=== PATIENT | female | born 1950 | race Caucasian/White ===

== ENCOUNTER → 2019-11-15 10:29 | Outpatient (CLI) | payer MEDICARE, SELFPAY ==
--- NOTE | ~2019-11-15 | MM_ITS ---
EXAMINATION: MM screening hill BI w aracely HISTORY: Screening mammogram TECHNIQUE: Craniocaudal and mediolateral oblique 3-D tomosynthesis images were obtained and synthetic 2-D images were generated. CAD analysis was submitted and interpreted. COMPARISON: 10/20/2018, 10/13/2017, 07/16/2016, 05/09/2015 bilateral digital screening mammogram examinat ions BREAST PARENCHYMAL COMPOSITION: The breasts are almost entirely fatty. FINDINGS: There is no evidence of suspicious mass, calcification, or architectural distortion to sugg est malignancy in either breast. There has been no suspicious interval change. IMPRESSION: 1. No mammographic evidence of malignancy. 2. Recommend routine screening mammography in one year. BI-RADS Category 1: Negative Reviewed, dictated and finalized at location A.
== END ==
PROVIDERS: Visit Provider Obstetrics & Gynecology Gynecology
DX: Z12.31 Encounter for screening mammogram for malignant neoplasm of breast (principal)
CPT/HCPCS: 77063; 77067

== ENCOUNTER → 2020-01-24 10:24 | Outpatient (CLI) | payer MEDICARE, SELFPAY ==
--- NOTE | ~2020-01-24 | MR_ITS ---
EXAMINATION: MR brain/brain stem wo/w con EXAM DATE: 01/24/2020 12:16 INDICATION: Z86.011 - Personal history of benign neoplasm of the brain. TECHNIQUE: Magnetic resonance imaging (MRI) of the brain/brain stem obtained without contrast. Sagit sarah T1, axial diffusion, gradient echo (T2*), T1, T2, FLAIR sequences obtained. Patient was then inj ected with XX cc intravenous Multihance contrast. Axial and coronal postcontrast T1 weighted sequence s obtained. Comparison is made to prior examination from 01/25/2019. FINDINGS: There are no areas of restricted diffusion to suggest acute infarction. There is no acute hemorrhage seen on the T2*, a hemosiderin sensitive sequence. No intraparenchymal brain mass. The ve ntricles are normal in size. There are no extra-axial collections. Flow voids are seen in the cereb ral arteries on the T2-weighted sequences consistent with their expected patency. The orbits are unr emarkable. Soft tissue is unremarkable. There is left mastoid effusion and mild ethmoid mucoperioste al thickening. There are no areas of abnormal enhancement on the post contrast images. IMPRESSION: 1. No evidence of meningioma or other suspicious findings. 2. An addendum can be added with dose of contrast once that information is available. Reviewed, dictated and finalized at location A. NURSE IMPRESSION: 1. No evidence of meningioma or other suspicious findings. 2. An addendum can be added with dose of contrast once that information is twyla ilable.
[2020-01-24 11:35] LABS: Estimated Glomerular Filt Rate > 60
== END ==
PROVIDERS: PCP Internal Medicine; Visit Provider Internal Medicine
DX: Z86.011 Personal history of benign neoplasm of the brain (principal)
CPT/HCPCS: 70553; A9577

== ENCOUNTER → 2020-06-12 12:13 | Outpatient (CLI) | payer MEDICARE, SELFPAY ==
--- NOTE | ~2020-06-12 | US_ITS ---
EXAMINATION: US renal BI DATE: 06/12/2020 12:30 INDICATION: Bilateral flank pain. Multiple urinary tract infections. TECHNIQUE: Multiple ultrasound grayscale images of the kidneys were obtained. COMPARISON: CT dated 10/27/2011 FINDINGS: The right kidney measures 8.7 x 4.5 x 4.6 cm. The left kidney measures 10.3 x 5.4 x 4.7 cm. The kidne ys demonstrate normal echogenicity. There is no hydronephrosis in either kidney. No stones identifie d. The bladder is normal. IMPRESSION: 1. Normal kidneys without hydronephrosis. Reviewed, dictated and finalized at location A.
== END ==
PROVIDERS: PCP Internal Medicine; Visit Provider Internal Medicine
DX: R10.9 Unspecified abdominal pain (principal)
CPT/HCPCS: 76775

== ENCOUNTER → 2020-06-30 08:30 | Outpatient (CLI) | payer MEDICARE, SELFPAY ==
[2020-06-30 18:55] LABS: SARS-CoV-2 RNA PCR Negative
== END ==
PROVIDERS: PCP Internal Medicine; Visit Provider Internal Medicine Gastroenterology
DX: Z01.812 Encounter for preprocedural laboratory examination (principal); Z20.822 Contact with and (suspected) exposure to COVID-19
CPT/HCPCS: C9803; U0003; U0005

== ENCOUNTER 2020-07-03 05:40 | Day surgery (SDC) | payer MEDICARE, SELFPAY ==
[2020-06-23 12:28] VITALS: BMI 37.4
[2020-07-03 11:23] VITALS: BP 130/66; PULSE 80; RESP 18; TEMP 36.1; O2SAT 99; BMI 37.3
[2020-07-03] MEDS: LACTATED RINGERS 1,000 ML 150 ML IV CONT (11:34)
[2020-07-03 11:42] LABS: Glucose Point of Care 156 (65-105)
--- NOTE | 2020-07-03 11:47 | WPDANESEPPF ---
Anes - Initial Pre Proc Eval Procedure: Operation Date: 07/03/20 12:30 Proposed Procedures p Esophagogastroduodenoscopy & Colonoscopy - Tyler Kang MD Date/Time: 07/03/20 11:47 Surgeon: Tyler Kang MD Pre Op Diagnosis: change in bowel hanits, GERD Patient Data Age: 69 Gender: F Height: 5 ft Weight: 86.6 kg Last Vital Signs Temp 96.9 F L 07/03/20 11:23 Pulse 80 07/03/20 11:23 Resp 18 07/03/20 11:23 BP 130/66 07/03/20 11:23 Pulse Ox 99 07/03/20 11:23 Allergies Allergy/AdvReac Type Severity Reaction Status Date / Time No Known Allergies Allergy Verified 07/03/20 11:17 Home Medications Medication Instructions Recorded Confirmed Type fluoxetine 20 mg capsule 40 mg PO DAILY #180 cap 02/10/20 07/03/20 Rx sitagliptin 50 mg-metformin 1,000 1 tablet PO BID #180 tablet 02/10/20 07/03/20 Rx mg tablet pantoprazole 40 mg tablet,delayed 40 mg PO BID #60 tablet 04/03/20 07/03/20 Rx release pravastatin 40 mg tablet 40 mg PO DAILY #90 tablet 04/03/20 07/03/20 Rx sod picosulf 10 mg-magnes 3.5 160 ml PO BID #160 ml 05/22/20 07/03/20 Rx gram-citric 12 gram/160 mL oral solution cholecalciferol (vitamin D3) 1,250 1,250 mcg PO WEEKLY 06/09/20 07/03/20 History mcg (50,000 unit) capsule levothyroxine 125 mcg tablet See Rx Instructions .ROUTE 06/12/20 07/03/20 Rx .COMPLEX #90 tablet ciprofloxacin HCl 250 mg tablet 250 mg PO Q12H #14 tablet 06/23/20 07/03/20 Rx Laboratory Tests 07/03/20 11:39 POC Capillary Glucose 156 mg/dl H mg/dl (65-105) Patient hx anesthesia problems: none Family hx anesthesia problems: none PMFSH Past Medical History Medical History (Updated 07/03/20 @ 12:06 by Michael Karimi MD) BMI 38.0-38.9,adult Coffee ground emesis Colon cancer screening Gastroesophageal reflux disease without esophagitis Hypothyroidism Mixed hyperlipidemia Type 2 diabetes mellitus without complication, without long-term current use of insulin Family History Family History Sibling Family history of cardiovascular disease, Onset Age: 66 Social History Social History (Updated 06/09/20 @ 12:53 by Augusta Barreto MA) Smoking packs per day: 0.5 Smoking cigarettes per day: 10.0 Years smoked: 25 Smoking pack-years: 12.50 Smoking status: Former smoker Tobacco type: cigarettes Second hand tobacco smoke exposure: No Smoking end date: 01/23/15 Alcohol intake: never Substance use: never Living arrangements: alone Gender identity (if verbalized by the patient): Female Spiritual care concerns: No Anes - Eval Final PreProcedure Day of Procedure 07/03/20 11:47 Patient weight: obese Heart: regular rate and rhythm Lungs: clear to auscultation Airway: Mallampati scale class II Neurological: alert and oriented Last oral intake: >/= 8 hours ASA classification: III Emergent: no Anesthetic plan: proceed Anesthesia type and monitoring: general GIVS and standard monitoring Informed Consent: The patient's anesthetic plan and its attendant risks and benefits were discussed with the patient/family/POA. Questions were solicited and answers provided to the satisfaction of the patient/family/POA.
--- NOTE | 2020-07-03 12:18 | PM.HPGS ---
History of Present Illness History of Present Illness Consent: Risks, benefits, and alternatives have been discussed and questions answered. Patient agrees to proceed with procedure. Chief complaint: change in bowel hanits, GERD Narrative: Kaelyn Cordero is a 69 year old female with gerd, better after protonix bid instead of omeprazole, also h/o Ramakrishna. Also needs screening colonoscopy Review of Systems Constitutional: Constitutional: Denies headache(s) and Denies weakness Eyes: Eyes: Denies blurry vision ENT: Reports Normal hearing present, Denies headache(s) and Denies neck pain Cardiovascular: Cardiovascular: Denies chest pain and Denies dyspnea Respiratory: Respiratory: Denies dyspnea Gastrointestinal: Gastrointestinal: Reports no additional gastrointestinal complaints Genitourinary: Genitourinary: Denies dysuria Musculoskeletal: Musculoskeletal: Denies neck pain Integumentary/Breasts: Skin/Breast: Denies dry skin Neurologic: Reports Normal hearing present, Denies headache(s) and Denies weakness Psychiatric: Psychiatric: Denies anxiety Endocrine: Endocrine: Denies change in body appearance Hematologic/Lymphatic: Hematologic/Lymphatic: Denies easy bleeding Allergic/Immunologic: Allergic/Immunologic: Denies urticaria PMFSH Past Medical History Medical History (Updated 07/03/20 @ 12:06 by Michael Karimi MD) BMI 38.0-38.9,adult Coffee ground emesis Colon cancer screening Gastroesophageal reflux disease without esophagitis Hypothyroidism Mixed hyperlipidemia Type 2 diabetes mellitus without complication, without long-term current use of insulin Family History Family History Sibling Family history of cardiovascular disease, Onset Age: 66 Social History Social History (Updated 06/09/20 @ 12:53 by Augusta Barreto MA) Smoking packs per day: 0.5 Smoking cigarettes per day: 10.0 Years smoked: 25 Smoking pack-years: 12.50 Smoking status: Former smoker Tobacco type: cigarettes Second hand tobacco smoke exposure: No Smoking end date: 01/23/15 Alcohol intake: never Substance use: never Living arrangements: alone Gender identity (if verbalized by the patient): Female Spiritual care concerns: No Meds Home Medications and Allergies Home Medications Medication Instructions Recorded Confirmed Type fluoxetine 20 mg capsule 40 mg PO DAILY #180 cap 02/10/20 07/03/20 Rx sitagliptin 50 mg-metformin 1,000 1 tablet PO BID #180 tablet 02/10/20 07/03/20 Rx mg tablet pantoprazole 40 mg tablet,delayed 40 mg PO BID #60 tablet 04/03/20 07/03/20 Rx release pravastatin 40 mg tablet 40 mg PO DAILY #90 tablet 04/03/20 07/03/20 Rx sod picosulf 10 mg-magnes 3.5 160 ml PO BID #160 ml 05/22/20 07/03/20 Rx gram-citric 12 gram/160 mL oral solution cholecalciferol (vitamin D3) 1,250 1,250 mcg PO WEEKLY 06/09/20 07/03/20 History mcg (50,000 unit) capsule levothyroxine 125 mcg tablet See Rx Instructions .ROUTE 06/12/20 07/03/20 Rx .COMPLEX #90 tablet ciprofloxacin HCl 250 mg tablet 250 mg PO Q12H #14 tablet 06/23/20 07/03/20 Rx Allergies Allergy/AdvReac Type Severity Reaction Status Date / Time No Known Allergies Allergy Verified 07/03/20 11:17 Vital Signs Vital Signs - 24 hr 07/03/20 11:23 Temperature 96.9 F L Pulse Rate 80 Respiratory Rate 18 Blood Pressure 130/66 Pulse Oximetry 99 Exam Const: General: comfortable and no acute distress HENMT: General nose exam: Normal nares present Eyes: General: appearance normal, both eyes and all related structures Neck: Neck: no JVD Resp: Auscultation: clear to auscultation bilaterally Cardio: Rate: regular rate Rhythm: regular rhythm GI: Inspection: non-distended GI Palp: Yes Soft to palpation Skin: General skin exam: normal color Neuro: General: gait normal Speech: normal speech Extrem: General: normal to inspection
[2020-07-03 12:50] VITALS: BP 122/72; PULSE 69; RESP 22; O2SAT 100
[2020-07-03 13:00] VITALS: BP 121/66; PULSE 66; RESP 21; O2SAT 99
[2020-07-03 13:10] VITALS: BP 134/70; PULSE 66; RESP 19; O2SAT 100
== END 2020-07-03 13:26 | disposition home or self-care (01) ==
PROVIDERS: PCP Internal Medicine; Visit Provider Internal Medicine Gastroenterology
PROC: 0DJ08ZZ Inspection of Upper Intestinal Tract, Via Natural or Artificial Opening Endoscopic (ICD-10-PCS; CPT 43235; principal; 2020-07-03 12:30)
DX: K21.9 Gastro-esophageal reflux disease without esophagitis (principal); R19.4 Change in bowel habit; K29.50 Unspecified chronic gastritis without bleeding; K44.9 Diaphragmatic hernia without obstruction or gangrene; D12.2 Benign neoplasm of ascending colon; D12.0 Benign neoplasm of cecum; D12.4 Benign neoplasm of descending colon; E78.2 Mixed hyperlipidemia; E03.9 Hypothyroidism, unspecified; E11.9 Type 2 diabetes mellitus without complications; Z87.891 Personal history of nicotine dependence
CPT/HCPCS: 43239; 45385; 82948; 88305; J2001; J2704; J7120

== ENCOUNTER → 2020-11-13 10:09 | Outpatient (CLI) | payer MEDICARE, SELFPAY ==
--- NOTE | ~2020-11-13 | DEXA_ITS ---
Bone Density Report Name: Kaelyn Cordero Age: 69 Sex: Female Ethnicity: White Date of : 1950 Indication: osteopenia; hysterectomy; Referring Provider: WERNER LOCKWOOD Study: Bone densitometry was performed. Exam Date: November 13, 2020 Accession number: [id number] Bone Density: Region BMD T-score Z-score Classification AP Spine (L1-L4) 0.900 -1.3 0.8 Osteopenia Femoral Neck (Left) 0.742 -1.0 0.9 Normal Total Hip (Left) 0.999 0.5 2.0 Normal Femoral Neck (Right) 0.721 -1.2 0.7 Osteopenia Total Hip (Right) 0.862 -0.7 0.9 Normal Total Hip Mean 0.931 -0.1 1.5 Normal World Health Organization criteria for BMD impression classify patients as: Normal (T-score at or above -1.0), Osteopenia (T-score between -1.0 and -2.5), or Osteoporosis (T-score at or below -2.5). 10-year Fracture Risk(1): Major Osteoporotic Fracture 8.6% Hip Fracture 1.0% Reported Risk Factors: [place] (), Neck BMD=0.721, BMI=34.2 (1) FRAX(R) Version 3.08. Fracture probability calculated for an untreated patient. Fracture probability may be lower if the patient has received treatment. Previous Exams: Region Exam Age BMD T-score BMD Change BMD Change Date g/cm2 vs Baseline vs Previous AP Spine(L1-L4) 11/13/2020 69 0.900 -1.3 0.000 0.051* 09/01/2018 67 0.850 -1.8 -0.050 0.018 01/22/2016 65 0.832 -2.0 -0.068 -0.053* 12/28/2013 63 0.885 -1.5 -0.015 -0.001 10/13/2011 60 0.886 -1.5 -0.014 -0.008 02/09/2009 58 0.894 -1.4 -0.006 0.005 01/12/2007 56 0.889 -1.4 -0.010 -0.010 09/10/2004 53 0.900 -1.3 Total Hip(Left) 11/13/2020 69 0.999 0.5 -0.136 0.051* 09/01/2018 67 0.948 0.0 -0.186 -0.047* 01/22/2016 65 0.995 0.4 -0.140 0.006 12/28/2013 63 0.989 0.4 -0.146 0.004 10/13/2011 60 0.985 0.4 -0.150 -0.037 02/09/2009 58 1.022 0.7 -0.112* -0.030* 01/12/2007 56 1.052 0.9 -0.082* -0.082* 09/10/2004 53 1.134 1.6 Total Hip(Right) 11/13/2020 69 0.862 -0.7 -0.251 -0.018 09/01/2018 67 0.880 -0.5 -0.233 0.006 01/22/2016 65 0.873 -0.6 -0.240 -0.023 12/28/2013 63 0.896 -0.4 -0.217 -0.035* 10/13/2011 60 0.931 -0.1 -0.182 -0.027 02/09/2009 58 0.958 0.1 -0.155* 0.023 01/12/2007 56 0.935 -0.1 -0.178*
== END ==
PROVIDERS: PCP Internal Medicine; Visit Provider Obstetrics & Gynecology Gynecology
DX: Z78.0 Asymptomatic menopausal state (principal); M85.89 Other specified disorders of bone density and structure, multiple sites
CPT/HCPCS: 77080

== ENCOUNTER → 2020-12-12 08:12 | Outpatient (CLI) | payer MEDICARE, SELFPAY ==
--- NOTE | ~2020-12-12 | MM_ITS ---
EXAMINATION: MM screening hill BI w aracely HISTORY: Screening mammogram TECHNIQUE: Craniocaudal and mediolateral oblique 3-D tomosynthesis images were obtained and synthetic 2-D images were generated. CAD analysis was submitted and interpreted. COMPARISON: 11/15/2019, 10/20/2018, 10/09/2017 bilateral digital screening mammogram examinations BREAST PARENCHYMAL COMPOSITION: The breasts are almost entirely fatty. FINDINGS: Stable circumscribed benign appearing left axillary tail lymph nodes There is no evidence o f suspicious mass, calcification, or architectural distortion to suggest malignancy in either breast. There has been no suspicious interval change. IMPRESSION: 1. No mammographic evidence of malignancy. 2. Recommend routine screening mammography in one year. BI-RADS Category 2: Benign finding(s). Reviewed, dictated and finalized at location A.
== END ==
PROVIDERS: PCP Internal Medicine; Visit Provider Obstetrics & Gynecology Gynecology
DX: Z12.31 Encounter for screening mammogram for malignant neoplasm of breast (principal)
CPT/HCPCS: 77063; 77067

== ENCOUNTER → 2021-01-27 09:58 | Outpatient (CLI) | payer MEDICARE, SELFPAY ==
--- NOTE | ~2021-01-27 | MR_ITS ---
EXAMINATION: MR brain/brain stem wo/w con DATE: 01/27/2021 11:24 INDICATION: Personal history of benign neoplasm of the brain. TECHNIQUE: Magnetic resonance imaging (MRI) of the brain and brainstem was performed without and with 15 mL MultiHance intravenous contrast. Sequences included sagittal and axial T1-weighted FSE, axial diffusion-weighted FS EPI, axial T2*-weighted GRE, axial T2-weighted FLAIR Propeller, and axial T2-we ighted Propeller. Postcontrast sequences included axial and coronal T1-weighted FSE. Apparent diffusi on coefficient (ADC) maps were created. COMPARISON: Brain MRI 01/25/2019 FINDINGS: There are scattered areas of nonspecific increased T2-weighted signal intensity in the cere bral white matter, which is within normal limits for the patient's age. There is no intracranial hemo rrhage, acute infarction, or abnormal intracranial mass lesion. The ventricles are normal in size. Th ere is mild mucosal thickening in the ethmoid sinuses. The mastoid air cells are normal. The orbits a re normal. IMPRESSION: 1. Normal aging brain. Reviewed, dictated and finalized at location A. K STEWARDESS IMPRESSION: 1. Normal aging brain.
[2021-01-27 10:44] LABS: Estimated Glomerular Filt Rate > 60
== END ==
PROVIDERS: PCP Internal Medicine; Visit Provider Internal Medicine
DX: Z86.011 Personal history of benign neoplasm of the brain (principal)
CPT/HCPCS: 70553; A9577

== ENCOUNTER → 2021-11-18 12:43 | Outpatient (CLI) | payer MEDICARE, SELFPAY ==
--- NOTE | ~2021-11-18 | US_ITS ---
EXAMINATION: US carotid duplex BI DATE: 11/18/2021 13:11 INDICATION: Visual disturbance TECHNIQUE: Grayscale, color Doppler, and pulsed Doppler images of the cervical carotid arteries were obtained. The degree of vessel stenosis is placed in one of the following categories: normal, <50%, 5 0-69%, >=70% but less than near-occlusion, near-occlusion, or total occlusion. Note that percent sten osis relative to normal distal artery lumen diameter is indirectly measured from velocity measurement s as described by Larry, et al. Radiology 2003; 229:340-346. Notes: Normal: Peak systolic velocity <125 centimeters/sec and no plaque <50%. Peak systolic velocity <125 ( EDV <40; ICA/CCA PSV ratio <2.0; used these factors only a tandem lesions or low cardiac output or co ntralateral disease) 50-69 %: PSV 125-230 (EDV 40-100; ratio 2-4) >= 70% but less than near occlusion: PSV greater than 230 (EDV > 100; ratio> 4.0) Near Occlusion: PSV that is variable; markedly narrowed lumen Occlusion: Absent flow on color/spectral Doppler and no lumen on bell scale. COMPARISON: None. FINDINGS: RIGHT: The right common carotid artery (CCA) peak systolic velocity (PSV) is 93 cm/s. The right internal car otid artery (ICA) PSV is 96 cm/s. The right ICA end-diastolic velocity (EDV) is 31 cm/s. The right IC A/CCA PSV ratio is 1.5. The external carotid artery (ECA) PSV is 99 cm/s. There is antegrade flow in the right vertebral artery. LEFT: The left CCA PSV is 70 cm/s. The left ICA PSV is 70 cm/s. The left ICA EDV is 29 cm/s. The left ICA/C CA PSV ratio is 1.1. The ECA PSV is 78 cm/s. There is antegrade flow in the left vertebral artery. IMPRESSION: 1. Less than 50% stenosis in the right internal carotid artery by sonographic criteria. 2. Less than 50% stenosis in the left internal carotid artery by sonographic criteria. Reviewed, dictated and finalized at location B. IMPRESSION: 1. Less than 50% stenosis in the right internal carotid artery by sonographic jovany caro. 2. Less than 50% stenosis in the left internal carotid artery by sonographic jackie presley.
== END ==
PROVIDERS: PCP Internal Medicine; Visit Provider Internal Medicine
DX: H53.8 Other visual disturbances (principal); I65.23 Occlusion and stenosis of bilateral carotid arteries
CPT/HCPCS: 93880

== ENCOUNTER → 2022-01-06 09:25 | Outpatient (CLI) | payer MEDICARE, SELFPAY ==
--- NOTE | ~2022-01-06 | MR_ITS ---
EXAMINATION: MR brain/brain stem wo/w con DATE: 01/06/2022 10:06 INDICATION: Chronic left-sided headache. TECHNIQUE: Magnetic resonance imaging (MRI) of the brain and brainstem was performed without and with 15 mL MultiHance intravenous contrast. COMPARISON: Brain MRI 01/27/2021 FINDINGS: There are scattered areas of nonspecific increased T2-weighted signal intensity in the cere bral white matter and christie, which is within normal limits for the patient's age. There is no intracra nial hemorrhage, acute infarction, or abnormal intracranial mass lesion. The ventricles are normal in size. There is mucosal thickening in the paranasal sinuses. The mastoid air cells are normal. The or bits are normal. IMPRESSION: 1. Normal aging brain. Reviewed, dictated and finalized at location A. KING AND SAWING MACHINE OPERATOR IMPRESSION: 1. Normal aging brain.
== END ==
PROVIDERS: PCP Internal Medicine; Visit Provider Internal Medicine
DX: Z86.011 Personal history of benign neoplasm of the brain (principal)
CPT/HCPCS: 70553; A9577

== ENCOUNTER → 2022-03-19 07:38 | Outpatient (CLI) | payer MEDICARE, SELFPAY ==
--- NOTE | ~2022-03-19 | MM_ITS ---
EXAMINATION: MM screening hill BI w aracely HISTORY: Screening TECHNIQUE: Craniocaudal and mediolateral oblique 3-D tomosynthesis images were obtained and synthetic 2-D images were generated. CAD analysis was submitted and interpreted. COMPARISON: Comparison to multiple prior studies sequentially, with oldest reviewed study dated 05/08. BREAST PARENCHYMAL COMPOSITION: There are scattered areas of fibroglandular density. FINDINGS: There is no evidence of suspicious mass, calcification, or architectural distortion to sugg est malignancy in either breast. There has been no suspicious interval change. IMPRESSION: 1. No mammographic evidence of malignancy. 2. Recommend routine screening mammography in one year. BI-RADS Category 1: Negative Reviewed, dictated and finalized at location A. R CONTRACTOR
== END ==
PROVIDERS: PCP Internal Medicine; Visit Provider Obstetrics & Gynecology Gynecology
DX: Z12.31 Encounter for screening mammogram for malignant neoplasm of breast (principal)
CPT/HCPCS: 77063; 77067

== ENCOUNTER → 2022-07-23 08:06 | Outpatient (CLI) | payer MEDICARE, SELFPAY ==
--- NOTE | ~2022-07-23 | XR_ITS ---
XR lumbar spine 6V w bending DATE: 07/23/2022 08:40 INDICATION: Low back pain TECHNIQUE: Standing AP, lateral and lumbosacral views. Bilateral oblique views. Standing flexion and extension lateral views. COMPARISON: 07/01/2013 lumbar spine FINDINGS: There is mild dextroscoliosis of the thoracolumbar spine. Included lower thoracic and lumbar pedicles appear intact. There is moderate degenerative disc disease throughout the lumbar and lumbosacral area. There is asso ciated minimal retrolisthesis at L3-4. No fracture or bone destruction is evident. Osteopenia. The sacroiliac joints are intact. Status post lower anterior abdominal wall repair. IMPRESSION: Mild thoracolumbar dextroscoliosis Osteopenia Multilevel moderate degenerative disc disease of the lumbar spine Reviewed, dictated and finalized at location A.
== END ==
PROVIDERS: PCP Family Medicine; Visit Provider Family Medicine
DX: G57.02 Lesion of sciatic nerve, left lower limb (principal); M85.88 Other specified disorders of bone density and structure, other site; M51.36 Other intervertebral disc degeneration, lumbar region
CPT/HCPCS: 72114

== ENCOUNTER 2022-09-16 00:25 | Day surgery (SDC) | payer MEDICARE, SELFPAY ==
[2022-09-06 15:21] VITALS: BMI 35.2
[2022-09-16 08:45] VITALS: BP 103/58; PULSE 72; RESP 18; TEMP 36.7; O2SAT 100; BMI 35.3
[2022-09-16 08:51] LABS: Glucose Point of Care 111 mg/dl (65-105)
--- NOTE | 2022-09-16 08:51 | WPDANESEPPF ---
Anes - Initial Pre Proc Eval Procedure: Operation Date: 09/16/22 09:30 Proposed Procedures p Esophagogastroduodenoscopy & Colonoscopy - Tyler Kang MD Date/Time: 09/16/22 08:51 Surgeon: Tyler Kang MD Pre Op Diagnosis: change in bowel habits,heartburn, Patient Data Age: 71 Gender: F Height: 1.5 m Weight: 79.4 kg Last Vital Signs Temp 98.0 F 09/16/22 08:45 Pulse 72 09/16/22 08:45 Resp 18 09/16/22 08:45 BP 103/58 L 09/16/22 08:45 Pulse Ox 100 09/16/22 08:45 O2 Del Method Room Air 09/16/22 08:45 Allergies Allergy/AdvReac Type Severity Reaction Status Date / Time No Known Allergies Allergy Verified 09/16/22 08:44 Home Medications Medication Instructions Recorded Confirmed Type fluoxetine 20 mg capsule 40 mg PO DAILY #180 caps 04/22/22 09/16/22 Rx sitagliptin phos 50 mg-metformin 1 tablet PO DAILY #30 tabs 05/26/22 09/16/22 Rx ER 1,000 mg tablet,extend rel 24h mp (Janumet XR) biotin 10,000 mcg capsule 10,000 mcg PO DAILY 07/14/22 09/16/22 History levothyroxine 75 mcg tablet 75 mcg PO DAILY #90 tabs 08/24/22 09/16/22 Rx pravastatin 40 mg tablet See Rx Instructions .Route 08/24/22 09/16/22 Rx .COMPLEX #90 tabs ergocalciferol (vitamin D2) 1,250 1,250 mcg PO WEEKLY 09/06/22 09/16/22 History mcg (50,000 unit) capsule (Vitamin D2) Laboratory Tests 09/16/22 08:49 POC Capillary Glucose 111 H mg/dl (65-105) Patient hx anesthesia problems: none Family hx anesthesia problems: none Results Review: All pre-operative results and documents have been reviewed as part of the pre-operative evaluation. [facility] Past Medical History Medical History (Updated 08/16/22 @ 10:30 by Julissa Ochoa, GILBERTO) Acute cystitis Altered bowel function BMI 35.0-35.9,adult BMI 38.0-38.9,adult Bronchitis Change in bowel habits Chest pressure Coffee ground emesis Colon cancer screening Fatigue Gastroesophageal reflux disease without esophagitis Heartburn High cholesterol Hx of adenomatous colonic polyps Hx of meningioma of the brain Hypothyroidism Mixed hyperlipidemia Mucus in stool Piriformis syndrome of left side Tenesmus (rectal) Type 2 diabetes mellitus without complication, without long-term current use of insulin Surgical History Surgical History H/O dilation and curettage x2 H/O elbow surgery H/O foot surgery H/O rotator cuff surgery H/O shoulder surgery x2 H/O: hysterectomy History of fundoplication Status post laparoscopic fundoplication Family History Family History Sibling Family history of cardiovascular disease, Onset Age: 66 Mother Brain aneurysm Cancer Sibling Cancer Acute myocardial infarction Diabetes mellitus Social History Social History Smoking packs per day: 0.5 Smoking cigarettes per day: 10.0 Years smoked: 30 Smoking pack-years: 15.00 Smoking status: Former smoker Tobacco type: cigarettes Second hand tobacco smoke exposure: No Smoking end date: 01/23/15 Alcohol intake: never Substance use: never Substance use type: does not use Lack of Transportation: No Lack of Food: Never True Current Housing: I Have Housing Concerned About Future Housing: No Difficulty Paying Gas/Electric Bills: No Difficulty Paying for Meds: No Currently Unemployed: No Education: High School Diploma/GED Difficulty w/ Childcare or Family Care: No Living arrangements: alone Occupation/Education: occupation 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
[2022-09-16] MEDS: LACTATED RINGERS 1,000 ML 150 ML IV CONT (08:58)
--- NOTE | 2022-09-16 09:11 | PM.HPGS ---
History of Present Illness History of Present Illness Consent: Risks, benefits, and alternatives have been discussed and questions answered. Patient agrees to proceed with procedure. Chief complaint: change in bowel habits,heartburn, Narrative: Kaelyn Cordero is a 71 year old female with history of laparoscopic redo hiatal hernia repair and toupet fundoplication October 29, [address] Butterfield, she had EGD 07/03/2020 with a medium size hiatal hernia and loose wrap of previous yamileth and mild gastritis-stomach biopsies noted mild chronic gastritis normal esophageal biopsies. Recently again with more reflux symptom using tums- she prefers not to take ppi if possible, also had pain in llq (last colonoscopy 2020 with polyps and recommendation to repeat in 3 years) Review of Systems Constitutional: Constitutional: Denies headache(s) and Denies weakness Eyes: Eyes: Denies blurry vision ENT: Reports Normal hearing present, Denies headache(s) and Denies neck pain Cardiovascular: Cardiovascular: Denies chest pain and Denies dyspnea Respiratory: Respiratory: Denies dyspnea Gastrointestinal: Gastrointestinal: Reports no additional gastrointestinal complaints Genitourinary: Genitourinary: Denies dysuria Musculoskeletal: Musculoskeletal: Denies neck pain Integumentary/Breasts: Skin/Breast: Denies dry skin Neurologic: Reports Normal hearing present, Denies headache(s) and Denies weakness Psychiatric: Psychiatric: Denies anxiety Endocrine: Endocrine: Denies change in body appearance Hematologic/Lymphatic: Hematologic/Lymphatic: Denies easy bleeding Allergic/Immunologic: Allergic/Immunologic: Denies urticaria PMFSH Past Medical History Medical History (Updated 08/16/22 @ 10:30 by Julissa Ochoa APRN) Acute cystitis Altered bowel function BMI 35.0-35.9,adult BMI 38.0-38.9,adult Bronchitis Change in bowel habits Chest pressure Coffee ground emesis Colon cancer screening Fatigue Gastroesophageal reflux disease without esophagitis Heartburn High cholesterol Hx of adenomatous colonic polyps Hx of meningioma of the brain Hypothyroidism Mixed hyperlipidemia Mucus in stool Piriformis syndrome of left side Tenesmus (rectal) Type 2 diabetes mellitus without complication, without long-term current use of insulin Surgical History Surgical History H/O dilation and curettage x2 H/O elbow surgery H/O foot surgery H/O rotator cuff surgery H/O shoulder surgery x2 H/O: hysterectomy History of fundoplication Status post laparoscopic fundoplication Family History Family History Sibling Family history of cardiovascular disease, Onset Age: 66 Mother Brain aneurysm Cancer Sibling Cancer Acute myocardial infarction Diabetes mellitus Social History Social History Smoking packs per day: 0.5 Smoking cigarettes per day: 10.0 Years smoked: 30 Smoking pack-years: 15.00 Smoking status: Former smoker Tobacco type: cigarettes Second hand tobacco smoke exposure: No Smoking end date: 01/23/15 Alcohol intake: never Substance use: never Substance use type: does not use Lack of Transportation: No Lack of Food: Never True Current Housing: I Have Housing Concerned About Future Housing: No Difficulty Paying Gas/Electric Bills: No Difficulty Paying for Meds: No Currently Unemployed: No Education: High School Diploma/GED Difficulty w/ Childcare or Family Care: No Living arrangements: alone Occupation/Education: occupation Additional occupation/education comments: case planner Gender identity (if verbalized by the patient): Female Spiritual care concerns: No Meds Home Medications and Allergies Home Medications Medication Instructions Recorded Confirmed Type fluoxetine 20 mg capsule 40 mg P
--- NOTE | 2022-09-16 09:24 | SUR.OPER ---
EGD START: 915; END: 918. COLONOSCOPY START: 923; END: 935.
[2022-09-16 09:43] VITALS: BP 100/49; PULSE 64; RESP 22; O2SAT 98
[2022-09-16 09:53] VITALS: BP 112/49; PULSE 58; RESP 18; O2SAT 99
[2022-09-16 10:03] VITALS: BP 133/59; PULSE 60; RESP 18; O2SAT 99
== END 2022-09-16 10:12 | disposition home or self-care (01) ==
PROVIDERS: PCP Family Medicine; Visit Provider Internal Medicine Gastroenterology
PROC: 0DJ08ZZ Inspection of Upper Intestinal Tract, Via Natural or Artificial Opening Endoscopic (ICD-10-PCS; CPT 43235; principal; 2022-09-16 09:30)
DX: K20.0 Eosinophilic esophagitis (principal); K29.70 Gastritis, unspecified, without bleeding; K26.9 Duodenal ulcer, unspecified as acute or chronic, without hemorrhage or perforation; D12.2 Benign neoplasm of ascending colon; K64.8 Other hemorrhoids; E78.00 Pure hypercholesterolemia, unspecified; E03.9 Hypothyroidism, unspecified; E11.9 Type 2 diabetes mellitus without complications; Z87.891 Personal history of nicotine dependence; Z79.84 Long term (current) use of oral hypoglycemic drugs; Z98.890 Other specified postprocedural states
CPT/HCPCS: 45380; 43239; 82948; 88305; 88313; J2001; J2371; J2704; J7120

== ENCOUNTER → 2023-02-03 07:49 | Outpatient (CLI) | payer MEDICARE, SELFPAY ==
--- NOTE | ~2023-02-03 | MR_ITS ---
EXAMINATION: MR brain/brain stem wo con DATE: 02/03/2023 08:27 INDICATION: Personal history of benign neoplasm of the brain. Chronic left-sided headaches. TECHNIQUE: Magnetic resonance imaging (MRI) of the brain and brainstem was performed without intraven ous contrast. COMPARISON: Brain MRI 01/06/2022 FINDINGS: There are scattered areas of nonspecific increased T2-weighted signal intensity in the cere bral white matter, which is within normal limits for the patient's age. There is no intracranial hemo rrhage, acute infarction, or abnormal intracranial mass lesion. The ventricles are normal in size. Th e orbits are normal. There is mild mucosal thickening in the ethmoid sinuses. The mastoid air cells a re normal. IMPRESSION: 1. Normal aging brain. Reviewed, dictated and finalized at location A. OGRAMMETRIC ENGINEER IMPRESSION: 1. Normal aging brain.
--- NOTE | ~2023-02-03 | MR_ITS ---
. EXAMINATION: MR lumbar spine wo con DATE: 02/03/2023 08:35 INDICATION: Low back pain, unspecified. TECHNIQUE: Magnetic resonance imaging (MRI) of the lumbar spine was performed without intravenous con trast. Sequences included sagittal T2-weighted FSE, sagittal T2-weighted FS FSE, sagittal T1-weighted FSE, and axial T2-weighted FSE. COMPARISON: Lumbar spine radiographs 07/23/2022 FINDINGS: There is 8 degrees dextrocurvature of thoracolumbar spine. There is 3 mm retrolisthesis of L3 on L4. Vertebral body heights are normal. There is mildly decreased disc height at L2-L3 and L3-L4 . The distal spinal cord signal intensity is normal. The conus medullaris is at L1. The following dis c levels are specifically discussed: L1-L2: The disc is mildly bulging. There is moderate bilateral facet joint osteoarthritis. There is m ild bilateral neural foraminal stenosis. There is no central canal stenosis. L2-L3: The disc is bulging. There is mild bilateral facet joint osteoarthritis. There is mild bilater al neural foraminal stenosis. There is mild central canal stenosis. L3-L4: The disc is bulging with superimposed left central extrusion. There is moderate right and mild left facet joint osteoarthritis. There is mild bilateral neural foraminal stenosis. There is no cent ral canal stenosis. L4-L5: The disc is bulging and has an annular fissure. There is moderate bilateral facet joint osteoa rthritis. There is mild bilateral neural foraminal stenosis. There is mild central canal stenosis. L5-S1: The disc is bulging. There is severe bilateral facet joint osteoarthritis. There is mild bilat eral neural foraminal stenosis. There is no central canal stenosis. IMPRESSION: 1. Mild lumbar spondylosis. Reviewed, dictated and finalized at location A. CLEANER IMPRESSION: 1. Mild lumbar spondylosis.
== END ==
PROVIDERS: PCP Family Medicine; Visit Provider Family Medicine
DX: M43.06 Spondylolysis, lumbar region (principal); Z86.011 Personal history of benign neoplasm of the brain
CPT/HCPCS: 70551; 72148

== ENCOUNTER 2024-01-26 14:15 | Outpatient (CLI) | payer MEDICARE, SELFPAY ==
--- NOTE | ~2024-01-26 | MM_ITS ---
EXAMINATION: MM screening hill BI w aracely HISTORY: Screening TECHNIQUE: Craniocaudal and mediolateral oblique 3-D tomosynthesis images were obtained and synthetic 2-D images were generated. CAD analysis was submitted and interpreted. COMPARISON: Comparison to multiple prior studies sequentially, with oldest reviewed study dated 07/16. BREAST PARENCHYMAL COMPOSITION: Not Dense: The breasts are almost entirely fatty. FINDINGS: There is no evidence of suspicious mass, calcification, or architectural distortion to sugg est malignancy in either breast. There has been no suspicious interval change. IMPRESSION: 1. No mammographic evidence of malignancy. 2. Recommend routine screening mammography in one year. BI-RADS Category 1: Negative Reviewed, dictated and finalized at location B. NQUENT NOTICE MACHINE OPERATOR
== END 2024-01-26 14:16 | disposition home or self-care (01) ==
LOC: MICIMG 14:17
PROVIDERS: PCP Family Medicine; Visit Provider Nurse Practitioner
DX: Z12.31 Encounter for screening mammogram for malignant neoplasm of breast (principal)
CPT/HCPCS: 77063; 77067

== ENCOUNTER 2024-08-12 10:15 | Outpatient (CLI) | payer MEDICARE, SELFPAY ==
--- NOTE | ~2024-08-12 | DEXA_ITS ---
Bone Density Report Name: ANTHONY WADE Age: 73 Sex: Female Ethnicity: White Date of : 1950 Indication: osteopenia; height loss; hysterectomy; Referring Provider: WERNER LOCKWOOD Study: Bone densitometry was performed. Exam Date: August 12, 2024 Accession number: [id number] Bone Density: Region BMD T-score Z-score Classification AP Spine(L1-L4) 0.816 -2.1 0.3 Osteopenia Femoral Neck (Left) 0.661 -1.7 0.4 Osteopenia Total Hip (Left) 0.904 -0.3 1.5 Normal Femoral Neck (Right) 0.693 -1.4 0.7 Osteopenia Total Hip (Right) 0.868 -0.6 1.2 Normal Total Hip Mean 0.886 -0.5 1.4 Normal World Health Organization criteria for BMD impression classify patients as: Normal (T-score at or above -1.0), Osteopenia (T-score between -1.0 and -2.5), or Osteoporosis (T-score at or below -2.5). 10-year Fracture Risk(1): Major Osteoporotic Fracture 11% Hip Fracture 2.2% Reported Risk Factors: [place] (), Neck BMD=0.661, BMI=32.1 (1) FRAX(R) Version 3.08. Fracture probability calculated for an untreated patient. Fracture probability may be lower if the patient has received treatment. Previous Exams: -- Region Exam Age BMD T-score BMD Change BMD Change Date g/cm2 vs Baseline vs Previous -- AP Spine (L1-L4) 08/12/2024 73 0.816 -2.1 -9.3%# -9.4%* 11/13/2020 69 0.900 -1.3 0.0%# 6.0%* 09/01/2018 67 0.850 -1.8 -5.6%# 2.1% 01/22/2016 65 0.832 -2.0 -7.6%# -6.0%* 12/28/2013 63 0.885 -1.5 -1.7%# -0.1% 10/13/2011 60 0.886 -1.5 -1.5%# -0.9%# 02/09/2009 58 0.894 -1.4 -0.6% 0.5% 01/12/2007 56 0.889 -1.4 -1.1% -1.1% 09/10/2004 53 0.900 -1.3 Total Hip(Left) 08/12/2024 73 0.904 -0.3 -20.3%# -9.4%* 11/13/2020 69 0.999 0.5 -12.0%# 5.3%* 09/01/2018 67 0.948 0.0 -16.4%# -4.7%* 01/22/2016 65 0.995 0.4 -12.3%# 0.6% 12/28/2013 63 0.989 0.4 -12.9%# 0.4% 10/13/2011 60 0.985 0.4 -13.2%# -3.7%# 02/09/2009 58 1.022 0.7 -9.9%* -2.8%* 01/12/2007 56 1.052 0.9 -7.3%* -7.3%* 09/10/2004 53 1.134 1.6 Total Hip(Right) 08/12/2024 73 0.868 -0.6 -22.0%# 0.7% 11/13/2020 69 0.862 -0.7 -22.6%# -2.0% 09/01/2018 67 0.880 -0.5 -21.0%# 0.7% 01/22/2016 65 0.873 -0.6 -21.5%# -2.5% 12/28/2013 63 0.896 -0.4 -19.5%# -3.8%* 10/13/2011 60 0.931 -0.1 -16.3%# -2.8%# 02/09/2009 58 0.958 0.1 -13.9%* 2.5% 01/12/2007 56 0.935 -0.1 -16.0%* -16.0%* 09/10/2004 53 1.113 1.4 -- *Denotes significance at 95% confidence level, LSC for AP Spine = 0.022 g/cm2, LSC for Total Hip = 0.027 g/cm2 # Denotes dissimilar scan types or analysis methods Clinical Information Provided by Patient: Has used the following medications: Vitamin D Has the following medical conditions: Hysterectomy Patient maximum height was 60.5 Menopause Age: 29 No regular weight bearing exercise Does not regularly consume dairy products Drinks caffeinated beverages Onset of menses at age 10 Number of children 2 Impression: The patient has low bone mass, based on the Total Spine T-score. The patient has an estimated ten-year risk of hip fracture of 2.2% and an estimated ten-year risk of major fracture of 11%, based on the WHO FRAX algorithm. The BMD for the AP Spine (L1-L4) decreased, changing by -9.4% since the last DXA exam. The BMD for the Total Hip(Left) decreased, changing by -9.4% since the last DXA exam. Discussion: BONE DENSITY IS LOW AT ONE OR MORE SKELETAL SITES. This patient's lowest T-score is low at one or more skeletal sites. It meets the World Health Organization's (WHO) criteria for ?low bone mass? (T-score between -1.0 and -2.5). The patient's 10-year risk of fracture as calculated by FRAX is less than the threshold where pharmacological therapy is recommended by the National Osteoporosis Foundation (NOF). However, all treatment decisions require clinical judgment and consideration of individual patient factors, including patient preferences, comorbidities, previous drug use, risk factors not captured in the FRAX model (e.g., frailty, falls, vitamin D deficiency, increased bone turnover, interval significant decline in bone density) and possible under or overestimation of fracture risk by FRAX. The patient should follow a healthful lifestyle (good nutrition with adequate calcium and vitamin D, and appropriate weight-bearing exercise). Follow-Up: Consider repeating this study in 2 years to reassess this patient's status, or sooner if there is some new clinical indication. Reported by: PARRISH on 08/12/2024 10:45:00 AM. Reviewed, dictated and finalized at location A.
== END 2024-08-12 10:16 | disposition home or self-care (01) ==
PROVIDERS: Visit Provider Obstetrics & Gynecology Gynecology
DX: M85.89 Other specified disorders of bone density and structure, multiple sites (principal); Z78.0 Asymptomatic menopausal state
CPT/HCPCS: 77080

== ENCOUNTER 2024-11-20 12:58 | Outpatient (CLI) | payer MEDICARE, SELFPAY ==
--- OUTSIDE RECORDS SUMMARY | 2008-10-16 06:00 | XMS_ITS | Continuity of Care Document ---
Author Organization [facility] [address] [facility] [address] [place] [address] Phone Care Team Providers Care Personal Property Assessor Name Role Phone Rosa Lehman Unavailable Unavailable Procedures Procedure Date Eye Exam & Treatment Refraction Eye Exam Established Pt Advance Directives Directive Yes / No Effective Date File Name No Information Encounters Encounter Description Practice Location Reason(s) For Visit Diagnoses Date Provider Providers Copied on Encounter [facility], [address] [place] [address] [address], [place], [place], [id number], [place] tel:[phone] [facility] No Information 9 Fallon Lee. [address] , [address], [place], [address], [place]. tel:[phone] [facility], [address] [place] [address] [address], [place], [place], [id number], tel:[phone] [facility] No Information 7 Radha Olvera. [address] , [address], [place], [address], [place]. tel:[phone] Family History Family Member Type Diagnosis Age At Onset No Information Payers Payer name Insurance type Covered libertarian ID Authoriza tion(s) [employer] [id number] Social History Type Description Quantity Date Captured Comments Sex Female Smoking Status No Information Chief Complaint And Reason For Visit No Information Reason For Referral Reason For Referral No Information History Of Present Illness Encounter Date Complaint History Of Prese nt Illness No Information Functional Status Date Functional Assessmen t No Information Instructions Date Instruction Additional Infor mation No Information Assessments Type Assessment Date No Information Patient Care Teams Name Effective Dates (start - stop) Status Members No Information
--- OUTSIDE RECORDS SUMMARY | 2024-11-20 13:06 | XMS_ITS | Clinical Summary ---
Author Organization [facility] Care Team Providers Care Wooden Box Maker Name Role Phone Unavailable Primary Care Provider Unavailabl e Social History Tobacco Use Types Packs/Day Years Used Date Smoking Tobacco: Never Assessed Comments Unknown Sex and Gender Information Value Date Recorded Sex Assigned at Not on file Legal Sex Female 8:58 PM CDT Gender Identity Not on file Sexual Orientation Not on file Plan of Treatment Health Maintenance Due Date Last Done Comments Hepatitis C Virus (HCV) Screening 1950 TdaP Immunization 1950 Cologuard 1994 Colonoscopy 1994 Colorectal Cancer Screening 1994 Immunochemical Fecal Occult Blood 1994 Pneumococcal Immunization (5 0+ years) (1 of 1 - PCV) 12/17/1999 Zoster Immunization (1 of 2) 12/17/1999 Influenza Immunization (#1) 2024 SARS-COV-2 Immunization ( - season) 2024 Respiratory Syncytial Virus (RSV) Immunization (Adult) (1 - 1-dose 75+ series) 2024 Hepatitis B Immunization Aged Out No longer eligible based on patient's age to complete this topic Human Papillomavirus (HPV) Immunization Aged Out No longer eligible b ased on patient's age to complete this topic Meningococcal Immunization (ACWY) Aged Out No longer eligible based on patient's age to complete this topic Rotavirus Immunization Aged Out No lo nger eligible based on patient's age to complete this topic
--- OUTSIDE RECORDS SUMMARY | 2024-11-20 13:06 | XMS_ITS | Clinical Summary ---
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 1 Active pravastatin (PRAVACHOL) 40 mg tabletIndicatio ns:hyperlipidem ia Take 40 mg by mouth every morning 1 Active Janumet 50-1,000 mg per tabletIndicatio ns:type 2 diabetes mellitus Take 1 tablet by mouth 2 (two) times a day 1 Active APPLE CIDER VINEGAR ORALIndications :supplement Take 450 mg by mouth 2 (two) times a day Active biotin 10,000 mcg capsuleIndicati ons:Biotin Deficiency Take 10,000 mcg by mouth every morning Active pantoprazole DR (PROTONIX) 40 mg EC tabletIndicatio ns:Treatment of Non-Bleeding Gastric Disorder Take 1 tablet (40 mg total) by mouth daily 30 tablet 09/11/202 1 Active acetaminophen (TYLENOL) 325 mg tablet Take 2 tablets (650 mg total) by mouth every 6 (six) hours as needed for headaches 30 tablet 1 Active Active Problems Problem Noted Date Diagnosed Date Hiatal hernia with GERD 09/09/2020 Overview (09/09/2020): Added automatically from request for surgery [id number] Surgical History Surgery Date Site/Laterality Comments GIACOMO FUNDOPLICATION CHOLECYSTECTOMY DILATION AND CURETTAGE OF UTERUS HYSTERECTOMY FOOT SURGERY ROTATOR CUFF REPAIR Bilateral Medical History Medical History Date Comments GERD (gastroesophageal reflux disease) Hyperlipidemia Hypothyroidism Depression Family History Medical History Relation Name Comments Cancer Brother Diabetes Brother Cancer Mother Relation Name Status Comments Brother Mother Social History Tobacco Use Types Packs/Day Years Used Date Smoking Tobacco: Former Cigarettes Q uit: 01/23/2015 Smokeless Tobacco: Never AUDIT-C Answer Date Recorded Q1: How often do you have a drink containing alc ohol? Never 10/29/2020 Average Number of Drinks Not on file 021 Frequency of Binge Drinking Not on file 10/2020 Comments Unknown Sex and Gender Information Value Date Recorded Sex Assigned at Not on file Legal Sex Female 11:00 PM [employer] Gender Identity Not on file Sexual Orientation Not on file Obstetrics History Last Filed Vital Signs Vital Sign Reading Time Taken Comments Blood Pressure 126/68 11/01/2020 8:20 AM CDT Pulse 70 11/01/2020 8:20 AM CDT Temperature 37 C (98.6 F) 11/01/2020 8:20 AM CDT Respiratory Rate 16 11/01/2020 8:20 AM CDT Oxygen Saturation 94% 11/01/2020 8:20 AM CDT Inhaled Oxygen Concentration - - Weight 87.2 kg (192 lb 3.9 oz) 10/29/2020 8:21 P M CDT Height 149.9 cm (4' 11.02) 10/29/2020 8:21 PM C DT Body Mass Index 38.81 10/29/2020 8:21 PM CDT Plan of Treatment Not on file Insurance [facility]ICARE [facility] MEDICARE [facility] Advance Directives For more information, please contact: [phone] * Full Code (Latest Code Status on File) Date Activated Date Inactivated Comments 10/29/2020 8:31 PM 11/01/2020 5:31 PM Care Teams Special Education Administrator Relationship Specialty Start Date End Date Giovanni Garland DO PCP - General Internal Medicine 08/10/20
--- NOTE | 2024-11-20 13:20 | NEURO_ITS ---
Impression: # Known diabetic complains of numbness of feet. ? # Normal Nerve Conduction Study. ? # Normal needle/EMG exam. # could be related to his small fiber neuropathy. Clinical correlation recommended. ?Nerve Conduction Studies ?Stim Site NR Peak (ms) P-T Amp (?V) Site1 Site2 Delta-P (ms) Dist (cm) Simone (m/s) Left Sup Fibular Anti Sensory (Ant Lat Mall) 14 cm ? 3.2 7.7 14 cm Ant Lat Mall 3.2 16.0 50 Right Sup Fibular Anti Sensory (Ant Lat Mall) 14 cm ? 3.5 13.3 14 cm Ant Lat Mall 3.5 16.0 46 Left Sural Anti Sensory (Lat Mall) Calf ? 3.3 12.0 Calf Lat Mall 3.3 16.0 48 Right Sural Anti Sensory (Lat Mall) Calf ? 3.0 64.4 Calf Lat Mall 3.0 16.0 53 ?Stim Site NR Onset (ms) O-P Amp (mV) Site1 Site2 Delta-0 (ms) Dist (cm) Simone (m/s) Left Peroneal Motor (Vastus Med) Ankle ? 3.8 3.7 Popit Ankle 8.6 39.0 45 Popit ? 12.4 2.6 Right Peroneal Motor (Vastus Med) Ankle ? 3.8 4.0 Popit Ankle 8.4 38.0 45 Popit ? 12.2 3.5 Left Tibial Motor (Abd [place] Brev) Ankle ? 5.3 4.0 Knee Ankle 9.6 39.0 41 Knee ? 14.9 2.0 Right Tibial Motor (Abd [place] Brev) Ankle ? 4.3 8.4 Knee Ankle 7.7 37.0 48 Knee ? 12.0 3.9 F Wave Studies ?NR F-Lat (ms) L-R F-Lat (ms) Left Peroneal (Mrkrs) (EDB) ? 48.95 1.44 Right Peroneal (Mrkrs) (EDB) ? 47.51 1.44 Left Tibial (Mrkrs) (Abd Hallucis) ? 51.37 3.11 Right Tibial (Mrkrs) (Abd Hallucis) ? 48.25 3.11 Electromyography ?Side Muscle Nerve Root Ins Act Fibs Amp Dur Recrt Comment Right AntTibialis Dp Br Fibular L4-5 Nml Nml Nml Nml Nml Right Gastroc Tibial S1-2 Nml Nml Nml Nml Nml Right Fibularis Long Sup Br Fibular L5-S1 Nml Nml Nml Nml Nml Right Flex Dig Long Tibial L5-S2 Nml Nml Nml Nml Nml Right Ext Dig Brev Dp Br Fibular L5, S1 Nml Nml Nml Nml Nml Right QuadratusFem QuadFemoris L4-5, S1 Nml Nml Nml Nml Nml Left AntTibialis Dp Br Fibular L4-5 Nml Nml Nml Nml Nml Left Gastroc Tibial S1-2 Nml Nml Nml Nml Nml Left Fibularis Long Sup Br Fibular L5-S1 Nml Nml Nml Nml Nml Left Flex Dig Long Tibial L5-S2 Nml Nml Nml Nml Nml Left Ext Dig Brev Dp Br Fibular L5, S1 Nml Nml Nml Nml Nml Left QuadratusFem QuadFemoris L4-5, S1 Nml Nml Nml Nml Nml
== END 2024-11-20 12:59 | disposition home or self-care (01) ==
LOC: ANHNEURO 13:00
PROVIDERS: PCP Family Medicine; Visit Provider Family Medicine
DX: M79.604 Pain in right leg (principal); M79.605 Pain in left leg; M47.816 Spondylosis without myelopathy or radiculopathy, lumbar region
CPT/HCPCS: 95886; 95910

== ENCOUNTER 2024-12-04 11:00 | Outpatient (RCR) | payer MEDICARE, SELFPAY ==
--- NOTE | 2024-10-18 14:27 | OPREHPOC ---
Outpatient Therapy Plan of Care This is a Multidisciplinary Plan of Care that may contain components documented by all disciplines (PT, OT, and ST.) PT Problem 1 PT Problem #1 Knowledge Deficit PT Goal 1 Goal / Goal Update *independent with HEP * good safety awareness with mobility Target Visit 10 PT Problem 2 PT Problem #2 Impaired Functional Mobility PT Goal 1 Goal / Goal Update pt perform without loss of balance 1* sit to stand transfer 2* bend forward, reach to floor x1 reps 3* 360' turn to R x1 rep 4* 360' turn to L x 1 rep 5* 5 reps sit/stand time of 18 seconds 6* pt report NO falls 7* walk 50' with head turns to R and L 2x each 8* further assessment of vestibular system as indicated with progression of treatment Target Visit 10
--- NOTE | 2024-10-18 14:28 | PTOPEVAL1 ---
Assessment and note entered by Annalise Solitario, PT Evaluation Information Assessment Status Evaluation ICD-10 Condition Codes (PT) Difficulty Walking R26.2,Abnormalities of gait and mobility R26.9,BPPV H81.12 Onset May 2024 Subjective Information with walking, tend to veer to side and cannot walk straight, am off balance have ringing in both ears, all the time; when stand up from a chair, tend to fall backwards; when walking down the stairs, missed last step, ankle twisted and fell; problems with seeing going from light to dark environment in her house- vison distorted when walking into her bed room after going to the bathroom and with leaning over to pick her purse off the floor- leaned over, hit head on edge of dresser; -------- recent eye exam, had cataract surgery and use glasses for reading only; do have floaters in her L eye. symptoms: off balance with walking, veer with walking; looking up- fall backwards, look down- fall forward; unsteady increases: sit to stand, lean over to pick something up off ground -------- no issues with: rolling R/L in bed, lying down to sitting up; history of chronic neck and back pain; LE ? neuropathy- going to have EMG of legs; no changes in meds; blood pressure sometimes is low Reported Pain Level Pain Score : Self Report Additional Pain Score Comments reports issues with chronic neck and back pain; history of headaches --? sinus related and stress related Assessment PT Clinical Summary Kaelyn has the diagnosis of BPPV, decreased gait and balance skills. Dizziness Handicap index rating of 22. She describes her issues as: off balance, unsteady, cannot walk a straight path, something wrong with her eyes. At this time, does not report any spinning. And more mucous in her sinus' and always have a runny nose. She has had several falls in the past few months. Medical history includes: chronic neck pain with headaches, chronic back pain, diabetic, bilateral foot surgery, sinus surgery, ringing in both ears, vision changes with L eye floaters, neuropathy in both legs. With the evaluation: Vestibular testing was negative with anterior/posterior and horizontal canal BPPV, eye tracking and oculomotor testing; poor standing posture with forward head, rounded shoulders and increase cervical extension; 5 reps sit/stand time of 21 seconds; with sit/stand transfer has loss of balance, but able to regain independently; gait is without an assistive device--reaching for rail in [address] way and veer to R/L. Skilled PT services are indicated for therapeutic exercises to increase static and dynamic standing balance, increase LE strength, education for HEP and safety with mobility; will continue to monitor her vestibular system during treatment for BPPV. Plan of Care Interventions Manual Therapy,Neuro Re-education,Patient/ Caregiver Education,Therapeutic Activities, Therapeutic Exercise PT Services Indicated Yes Treatment Frequency and 1-2x/wk for 10 visits Duration These treatments will address the objective and functional deficits as defined above. The patient will be advanced safely and appropriately in order for the patient to progress towards his/her prior level of function. Additional exercises will be introduced and as well as a comprehensive home exercise program upon discharge, if needed, ?to ensure carryover of functional gains achieved in the clinic. This treatment plan has been reviewed and agreement upon by the patient.
--- NOTE | 2024-12-04 11:30 | PTOPDC ---
Assessment and note entered by Annalise Solitario, PT Assessment Status Discharge ICD-10 Condition Codes (PT) Difficulty Walking R26.2,Abnormalities of gait and mobility R26.9,BPPV H81.12 Onset May 2024 Subjective Information no dizziness right now; last time I had any dizziness was rolling from side/side few weeks ago ; do have some problems with walking at night in the dark, cannot use a night light-- cannot sleep unless it is dark in my bed room; have not had any falls; am safe and move slowly with changing positions; Reported Pain Level Pain Score 2: Self Report Additional Pain Score Comments chronic issues with back pain Assessment PT Clinical Summary Kaelyn has received 6 PT sessions. She has improved in all areas: able to perform balance and mobility activities, without any reports of dizziness, but did state eyes have to catch up. She has good safety awareness and holds position before moving, and moves slowly. 5 reps sit/stand time improved by 1 second; education completed for HEP and mobility safety. The goals were achieved, except the sit to stand time. Discharge PT. Plan of Care PT Services Indicated No
--- NOTE | 2024-12-04 11:30 | OPREHPOC ---
Outpatient Therapy Plan of Care This is a Multidisciplinary Plan of Care that may contain components documented by all disciplines (PT, OT, and ST.) PT Problem 1 PT Problem #1 Knowledge Deficit PT Goal 1 Goal / Goal Update *independent with HEP * good safety awareness with mobility 12-04-24 d/c goals met Target Visit 10 Progress Met PT Problem 2 PT Problem #2 Impaired Functional Mobility PT Goal 1 Goal / Goal Update pt perform without loss of balance 1* sit to stand transfer 2* bend forward, reach to floor x1 reps 3* 360' turn to R x1 rep 4* 360' turn to L x 1 rep 5* 5 reps sit/stand time of 18 seconds 6* pt report NO falls 7* walk 50' with head turns to R and L 2x each 8* further assessment of vestibular system as indicated with progression of treatment 12-04-24 d/c goals met, except #5 is 20 seconds Target Visit 10 Progress Partially Met
--- NOTE | 2024-12-04 11:30 | PCPTNOTE ---
pt requested to leave early today, due to something came up and need to leave at [phone]
== END 2024-12-04 12:52 | disposition home or self-care (01) ==
LOC: ANHPT 11:00
PROVIDERS: PCP Family Medicine; Visit Provider Family Medicine
DX: H81.13 Benign paroxysmal vertigo, bilateral (principal)
CPT/HCPCS: 97110; 97112; 97162; 97530

== ENCOUNTER 2025-01-27 13:06 | Outpatient (CLI) | payer MEDICARE, SELFPAY ==
--- NOTE | ~2025-01-27 | MM_ITS ---
EXAMINATION: MM screening hill BI w aracely HISTORY: Screening. TECHNIQUE: Craniocaudal and mediolateral oblique 3-D tomosynthesis images were obtained and synthetic 2-D images were generated. CAD analysis was submitted and interpreted. COMPARISON: 2023, 2022, and 2020. BREAST PARENCHYMAL COMPOSITION: Not Dense: The breasts are almost entirely fatty FINDINGS: No suspicious masses are seen. There are no suspicious calcifications. No unexplained architectural distortion is seen. There are no skin or nipple abnormalities identified. There is no adenopathy seen on the images submitted. IMPRESSION: No mammographic or sonographic evidence to suggest malignancy is seen. The patient may return to screening mammography as per ACR guidelines. BI-RADS 1 - Negative. Reviewed, dictated and finalized at location B. RMATION MANAGEMENT OFFICER IMPRESSION: No mammographic or sonographic evidence to suggest malignancy is seen. The santi ent may return to screening mammography as per ACR guidelines. BI-RADS 1 - Negative.
== END 2025-01-27 13:07 | disposition home or self-care (01) ==
LOC: MICIMG 13:07
PROVIDERS: PCP Family Medicine; Visit Provider Obstetrics & Gynecology Gynecology
DX: Z12.31 Encounter for screening mammogram for malignant neoplasm of breast (principal)
CPT/HCPCS: 77063; 77067